=== PATIENT | female | born 1960 | race Caucasian/White ===

== ENCOUNTER 2018-04-24 13:03 | Emergency (ER) | payer BC ==
[2018-04-24 13:43] VITALS: RESP 18
[2018-04-24] MEDS ORDERED: SODIUM CHLORIDE 0.9% FLUSH 10 ML SOL IV PRN (14:11)
[2018-04-24] MEDS ORDERED: SODIUM CHLORIDE 0.9% 1000ML 1,000 ML IV ONE (14:11)
[2018-04-24] MEDS ORDERED: ONDANSETRON HCL 4 MG/2 ML SOL IV ONE (14:11)
[2018-04-24] MEDS ORDERED: KETOROLAC TROMETHAMINE 30 MG/ML SOL IV ONE (14:11)
[2018-04-24] MEDS ORDERED: KETOROLAC TROMETHAMINE 30 MG/ML SOL ONE (14:13)
[2018-04-24] MEDS ORDERED: ONDANSETRON HCL 4 MG/2 ML SOL ONE (14:13)
[2018-04-24 14:29] LABS: BASOPHILS % (AUTO) 0 % (0-3); EOSINOPHILS % (AUTO) 0 % (0-9); HEMATOCRIT 45 % (35-47); HEMOGLOBIN 14.8 gm/dl (12.0-15.5); LYMPHOCYTES % (AUTO) 1.9 % (10-50); MEAN CORPUSCULAR HEMOGLOBIN 30.5 pg (27.0-32.0); MEAN CORPUSCULAR VOLUME 92 fL (81-99); MONOCYTES % (AUTO) 2.2 % (0-12); NEUTROPHILS % (AUTO) 95.5 % (37-80)
[2018-04-24 14:45] LABS: ALBUMIN 3.9 gm/dl (3.4-5.0); BILIRUBIN,TOTAL 1.5 mg/dl (0.2-1.0); CALCIUM 9.4 mg/dl (8.5-10.1); CARBON DIOXIDE 25.2 mEq/L (21-32); CREATININE 0.87 mg/dl (0.60-1.00); TOTAL PROTEIN 7.6 gm/dl (6.4-8.2)
[2018-04-24 15:07] LABS: INFLUENZA A NEGATIVE (NEGATIVE); INFLUENZA B NEGATIVE (NEGATIVE)
[2018-04-24 15:49] VITALS: BP 114/66; PULSE 93; TEMP 99.2; O2SAT 96
== END 2018-04-24 16:30 | disposition home or self-care (01) ==
LOC: ED 13:03
DX: K52.9 Noninfective gastroenteritis and colitis, unspecified (principal)
CPT/HCPCS: 80053; 85025; 87804; 96365; 96374; 96375; 99282; 99285; J1885; J2405